=== PATIENT | female | born 1950 | race Caucasian/White ===

== ENCOUNTER 2016-07-11 10:39 | Day surgery (SDC) | payer MEDICARE ==
[~2016-07-11] VITALS: Ht 160 cm; Wt 68.0 kg
[~2016-07-11 10:39] MED LIST: 0.9% Sodium Chloride 1,000 ML IV SCH; CETI10CA PO; FLUT9.9S NS; OMPR20CCR PO; Sodium Chloride LOK Flush 10 mL Syringe IV PRN; fentaNYL-PF 50 mCg/mL 2 mL Inj IVPUSH PRN
[2016-07-11 11:08] VITALS: BP 126/77; PULSE 73; RESP 16; O2SAT 94
[2016-07-11] MEDS ORDERED: OMEP20CA11 PO (11:17)
[2016-07-11 12:42] VITALS: BP 104/68; PULSE 62; RESP 12; O2SAT 96
[2016-07-11 12:51] VITALS: BP 104/68; PULSE 65; RESP 14; O2SAT 95
--- NOTE | 2016-07-11 13:29 | ENDO ---
[address] [address] ENDOSCOPY PROCEDURE PATIENT: ANDRÉS LOBO : 1950 MR#: [id number] ADMIT: 07/11/2016 JOB ID: [id number] PROCEDURE PERFORMED: Esophagogastroduodenoscopy. INDICATION: Esophageal dysphagia. Patient's ASA classification is II. Mallampati score is II. MEDICATIONS: Versed at 7 mg, fentanyl 100 mcg. INSTRUMENT USED: GIF-H180J. PROCEDURE DETAILS: After informed consent was obtained, the patient was brought into the GI suite, where she was placed on oxygen via nasal cannula and monitored with continuous pulse oximeter, telemetry, and blood pressure monitoring. A time-out was performed. Then, she was placed in the left lateral decubitus position and medications were administered for sedation. A bite block was placed. The standard EGD scope was then inserted through the bite block and advanced under direct visualization to second portion of the duodenum. The procedure was mildly difficult secondary to what appeared to be a J-shaped stomach. The examined portions of the duodenum appeared normal. 1. Normal-appearing pylorus antrum and gastric body. 2. Retroflexed views in the gastric body revealed a normal-appearing cardia and fundus. 3. The GE junction was at approximately 36 cm and appears slightly irregular. Multiple biopsies were obtained. IMPRESSION: 1. J-shaped stomach. 2. Slightly irregular GE junction. RECOMMENDATIONS: 1. Await biopsy results. 2. Will schedule patient for upper GI barium study. 3. Proceed to colonoscopy. PROCEDURE PERFORMED: Colonoscopy. INDICATION: History of colon polyps. Patient's ASA classification, Mallampati score, medications as above. INSTRUMENT USED: PCF-H180AL. Prep quality was good. PROCEDURE DETAILS: After completion of the EGD exam, the patient was turned and then a digital rectal exam was performed which was unremarkable. The colonoscope was then inserted into the rectum and advanced under direct visualization to the cecum, which was identified by the presence of the ileocecal valve and appendiceal orifice. Once the cecum was reached, the colonoscope was withdrawn back into the rectum. The mucosa and lumen were examined. In the rectum, retroflexion was performed. Following retroflexion, remaining air in the rectum was suctioned, and procedure was completed. FINDINGS: 1. In the distal ascending colon, there was evidence of a previously placed tattoo. 2. Otherwise normal exam from rectum to cecum. IMPRESSION: Previously placed tattoo in the ascending colon. RECOMMENDATIONS: Repeat colonoscopy in five years. COMPLICATIONS: None. ESTIMATED BLOOD LOSS: Less than 5 mL.
--- NOTE | 2016-07-14 14:05 | PATH ---
SURGICAL PATHOLOGY Attending Physician:Anu Walker CASE STATUS: Signed Out PATIENT NAME: ANDRÉS LOBO PID: [id number] : 1950 DATE COLLECTED:07/11/2016 20:14 SPECIMEN: Esophagus, Biopsy CLINICAL HISTORY: 1). DISTAL ESOPHAGUS FINAL DIAGNOSIS: 1.DISTAL ESOPHAGUS BIOPSY: SQUAMOUS MUCOSA AND GASTRIC CARDIA-TYPE MUCOSA NEGATIVE FOR SPECIALIZED METAPLASIA OF VILLAVICENCIO' S-TYPE ESOPHAGUS. Negative for dysplasia and malignancy. Negative for squamous intraepithelial eosinophils. ICD10 code K21.0 GROSS DESCRIPTION: Received in formalin, labeled with the patient' s name and "distal esophagus", are two fragments of ferraro, soft tissue ranging in size from 0.1 x 0.1 x 0.1 cm to 0.2 x 0.1 x 0.1 cm. All fragments are totally submitted in one cassette. ([id number]) MICRO DESCRIPTION: See diagnosis. ICD-9 CODES: CPT CODES: 1: 22941 Electronically Signed Out Lv Pressley MD [facility] Pathology [facility] [address], [place] [address] Technical component performed at [facility], [facility] [address], [place], [address]
== END 2016-07-11 23:59 | disposition home or self-care (01) ==
LOC: END 10:39
PROVIDERS: ATTEND Internal Medicine Gastroenterology
DX: Z12.11 Encounter for screening for malignant neoplasm of colon (principal); Z86.010 Personal history of colon polyps; Z80.0 Family history of malignant neoplasm of digestive organs; K21.0 Gastro-esophageal reflux disease with esophagitis; R13.14 Dysphagia, pharyngoesophageal phase; K21.9 Gastro-esophageal reflux disease without esophagitis; J30.2 Other seasonal allergic rhinitis
CPT/HCPCS: 43239; 88305; 99153; G0105; G0500; J7030